=== PATIENT | female | born 1960 | race African-American/Black ===

== ENCOUNTER 2024-05-05 22:49 | Emergency (ER) | payer MEDICARE, MEDICAID ==
[~2024-05-05] VITALS: Ht 175.3 cm; Wt 77.0 kg
--- NOTE | 2024-05-05 23:13 | ED.PDOC ---
History of Present Illness HPI Comments 63 y/o F, with a Hx of asthma, breast CA, COPD, HTN, obesity, and former tobacco use, is BIBA for c/o shortness of breath, wheezing, and chest pain, today. Per EMS report, patient endorses on unprovoked onset of symptoms, this morning, that has been progressively worsening since. She comments on pain being a 10/10 in severity and describes it as "tightening" within her chest wall as quality. On scene, patient was found with a SpO2 of 95% RA, with inspiratory wheezes, bilaterally, and increased [id number]. En route, patient was given albuterol nebulizer breathing treatment, with positive response. At time of assessment, patient reports no recent travel, sick contact, or any additional relevant or pertinent Hx. She denies having any palpitations, cough, fever, chills, nausea, vomiting, or other associated symptoms or modifiers at this time. Time Seen by MD: 22:45 Reviewed Notes: Nurses Notes, Procedure Tech Notes, Medications, Allergies Allergies: Coded Allergies: NO KNOWN ALLERGIES (Unverified , 05/06/24) Information Source: Patient, Emergency Med Personnel Mode of Arrival: EMS Severity: Moderate Timing: Hours Duration: Since onset Prehospital treatment: 12 Lead EKG, Breathing Tx, Furnace Combustion Tester Past Medical History PAST MEDICAL HISTORY: Asthma, Cancer (breast), COPD, HTN Past Medical History (Other): obesity Surgical History: Denies all surgeries RIVET FLUNKY History: Denies all RIVET FLUNKY Hx Family History Family History: Unknown Social History Smoker: Non-Smoker, Quit Greater Than 1 Year Alcohol: Denies ETOH Use Drugs: Denies Drug Use Lives In: Home Respiratory: reports: shortness of breath, wheezing Cardiovascular: reports: chest pain All Other Systems: Reviewed and Negative (negative unless otherwise stated above or in HPI) Physical Exam General Appearance: Mild Distress, Obese HEENT: Normal ENT Inspection, Pharynx Normal, TMs Normal Neck: Full Range of Motion, Non-Tender, Normal, Normal Inspection Respiratory: Chest Non-Tender, No Accessory Muscle Use, Wheezing (audible, bilateral ) Cardiovascular: No Edema, No JVD, No Murmur, No Gallop, Normal Peripheral Pulses, Regular Rate/Rhythm Breast Exam: Deferred Gastrointestinal: No Organomegaly, Non Tender, No Pulsatile Mass, Normal Bowel Sounds, Soft Genitalia: Deferred Pelvic: Deferred Rectal: Deferred Extremities: No calf tenderness, Normal capillary refill, Normal inspection, Normal range of motion, Non-tender, No pedal edema Musculoskeletal : Apperance: Normal Neurologic: Alert, bulb sorter II-XII nml as Tested, No Motor Deficits, Normal Affect, Normal Mood, No Sensory Deficits Cerebellar Function: Normal Reflexes: Normal Skin: Dry, Normal Color, Warm Lymphatic: No Adenopathy Was a procedure done? Was a procedure done?: No EKG EKG : Pulse Rate (adult): 73 [place]: Normal Cardiac Rhythm: NSR, PVC's Block: None Hypertrophy: None ST: Normal Differential Dx Considerations may include: COPD exacerbation, asthma exacerbation, URI, viral syndrome, bronchitis, PNA, PE, DE X-Ray, Labs, Meds, VS Vital Signs Date Time Temp Pulse Resp B/P (MAP) Pulse Ox O2 Delivery O2 Flow Rate FiO2 05/06/24 01:36 74 20 93 Nasal Cannula* 2 28 05/06/24 01:36 20 142/94 (110) 96 05/05/24 23:15 73 05/05/24 23:12 73 05/05/24 22:49 97.7 62 24 137/90 (106) 100 Lab Test 05/06/24 01:20 05/05/24 23:49 Range/Units Troponin I High Sensitivity 6 6 </=34 ng/L White Blood Count 4.7 4.4-10.8 10^3/uL Red Blood Count 3.68 L 4.0-5.20 10^6/uL Hemoglobin 12.8 12.2-16.2 g/dL Hematocrit 38.1 36.0-46.0 % Mean Corpuscular Volume 103.6 H 80.0-100.0 fL Mean Corpuscular Hemoglobin 34.9 H 28.0-32.0 pg Mean Corpuscular Hemoglobin Concent 33.7 32.0-36.0 g/dL Red Cell Distribution Width 14.4 H 11.8-14.3 % Platelet Count 232 140-450 10^3/uL Mean Platelet Volume 7.9 6.9-10.8 fL Neutrophils (%) (Auto) 35.0 L 37.0-80.0 % Lymphocytes (%) (Auto) 53.3 H 10.0-50.0 % Monocytes (%) (Auto) 9.4 0.0-12.0 % Eosinophils (%) (Auto) 1.3 0.0-7.0 % Basophils (%) (Auto) 1.0 0.0-2.0 % Neutrophils # (Auto) 1.6 1.6-8.6 10 ^3/uL Lymphocytes # (Auto) 2.5 0.4-5.4 10 ^3/uL Monocytes # (Auto) 0.4 0-1.3 10 ^3/uL Eosinophils # (Auto) 0.1 0-0.8 10 ^3/uL Basophils # (Auto) 0 0-0.2 10 ^3/uL Nucleated Red Blood Cells 0.2 % Sodium Level 143 136-145 mmol/L Potassium Level 4.3 3.5-5.1 mmol/L Chloride Level 113 H 98-107 mmol/L Carbon Dioxide Level 21 20-31 mmol/L Anion Gap 9 5-15 Blood Urea Nitrogen 17 9-23 mg/dL Creatinine 1.93 H 0.550-1.02 mg/dL Glomerular Filtration Rate Calc 29 >90 mL/min BUN/Creatinine Ratio 8.8 L 10.0-20.0 Serum Glucose 104 74-106 mg/dL Calcium Level 9.9 8.7-10.4 mg/dL B-Type Natriuretic Peptide 34.35 0-100 pg/mL Current Medications Medications (Trade) Dose Ordered Sig/Varun Route Start Time Stop Time Status Last Admin Albuterol (Ventolin Medneb) 10 mg ONCE ONCE NEB 05/05/24 23:30 05/05/24 23:31 DC 05/05/24 23:34 Ipratropium [place] (Atrovent Medneb) 0.5 mg ONCE ONCE NEB 05/05/24 23:30 05/05/24 23:31 DC 05/05/24 23:34 Methylprednisolone Sodium Succinate (Solu Medrol) 125 mg ONCE ONCE IM 05/06/24 01:15 05/06/24 01:16 DC 05/06/24 01:24 Ceftriaxone Sodium (Rocephin) 500 mg ONCE ONCE IM 05/06/24 01:15 05/06/24 01:16 DC 05/06/24 01:24 Acetaminophen/ Hydrocodone Bitart ([place] 10/325MG Tab) 1 tab ONCE ONCE PO 05/06/24 01:45 05/06/24 01:46 DC 05/06/24 01:46 The 1st troponin is six. Second troponin is six. EKG shows no signs of ischemia CBC is normal. Creatinine is 1.93. The patient was given breathing treatment Solu-Medrol and Rocephin with [place] for COPD. The patient was evaluated by respiratory therapy and found not to be in respiratory distress. SpO2 is 96-100 on room air. The patient will follow up with the primary care physician in 1-2 days. Time of 1ST Reevaluation: 23:15 Reevaluation 1ST: Unchanged Patient Education/Counseling: Diagnosis, Treatment Family Education/Counseling: No Family Present Departure 1 Departure Time of Disposition: 03:36 Impression: Primary Impression: COPD exacerbation Additional Impression: Renal insufficiency Disposition: HOME / SELF CARE / HOMELESS Condition: Stable Additional Instructions: Reassessed patient, vital signs stable. Denies any new symptoms. Patient is able to tolerate PO and ambulate/be mobile at their baseline without concern. Risks and benefits of all medications given or prescribed, if any, discussed. All lab work, imaging and diagnostic studies were reviewed by me. The patient was counseled extensively on my clinical impression, diagnosis, expected course of the disease, and plan, including their follow-up care. Will discharge patient. Patient instructed to follow up with Primary Care Physician within 24-48 hours. Strict return precautions given for further exacerbation of symptoms or for new symptoms. The patient was given the opportunity to ask questions and all questions were answered by myself and the nursing/tech staff. Patient is in agreement with the care plan. The patient verbally expressed understanding of the discharge instructions, including the reasons to return to the Emergency Department. Discharged With: Self Critical Care Note Critical Care Time?: Yes (35 min-critical care time only) Stability Stability form required: No Heart Score Heart Score: Heart Score Response (Comments) Value History Moderate Suspicious 1 EKG N/A 0 Age 45-64 1 Risk Factors >3 or Hx ASHD 2 Troponin Normal limit 0 Total 4 I personally scribed for ELTON SMITH MD ([email or web address]) on 05/05/24 at 23:13. Electronically submitted by Rashaun Bishop ([email or web address]). I personally scribed for ELTON SMITH MD ([email or web address]) on 05/05/24 at 23:15. Electronically submitted by Rashaun Bishop ([email or web address]). ELTON SMITH MD May 05, 2024 23:13
[2024-05-05] MEDS: ALBUTEROL SULF 2.5 MG/0.5ML(0.5%) NEB SOLN NEB ONE (23:34)
[2024-05-05] MEDS: IPRATROPIUM BROM 0.5 MG/2.5ML INH SOL NEB ONE (23:34)
[2024-05-06 00:09] LABS: Eosinophils # (auto) 0.1 10 ^3/uL (0-0.8); Hematocrit 38.1 % (36.0-46.0); Neutrophils # (auto) 1.6 10 ^3/uL (1.6-8.6); White Blood Cell 4.7 10^3/uL (4.4-10.8)
[2024-05-06 00:10] LABS: Basophils # (auto) 0 10 ^3/uL (0-0.2); Eosinophils % (auto) 1.3 % (0.0-7.0); Hemoglobin 12.8 g/dL (12.2-16.2); Lymphocytes # (auto) 2.5 10 ^3/uL (0.4-5.4); Lymphocytes % (auto) 53.3 % (10.0-50.0); Mean Corpuscular Hemoglobin 34.9 pg (28.0-32.0); Mean Corpuscular Hgb Conc. 33.7 g/dL (32.0-36.0); Mean Corpuscular Volume 103.6 fL (80.0-100.0); Monocytes # (auto) 0.4 10 ^3/uL (0-1.3); Monocytes % (auto) 9.4 % (0.0-12.0); Nucleated Red Blood Cells % 0.2 %; Platelet Count (auto) 232 10^3/uL (140-450); Red Blood Cells 3.68 10^6/uL (4.0-5.20); Red Cell Distribution Width 14.4 % (11.8-14.3)
[2024-05-06 00:11] LABS: Potassium 4.3 mmol/L (3.5-5.1); Sodium 143 mmol/L (136-145)
[2024-05-06 00:12] LABS: Anion Gap 9 (5-15); Carbon Dioxide 21 mmol/L (20-31)
[2024-05-06 00:13] LABS: Calcium 9.9 mg/dL (8.7-10.4)
[2024-05-06 00:17] LABS: BUN/Creatinine Ratio 8.8 (10.0-20.0); Blood Urea Nitrogen 17 mg/dL (9-23); Glucose 104 mg/dL (74-106)
[2024-05-06 00:19] LABS: Chloride 113 mmol/L (98-107)
[2024-05-06] MEDS: cefTRIAXone SOD 500 MG VL IM ONE (01:24)
[2024-05-06] MEDS: methylPREDNISolone SOD SUCC 125 MG/2 ML VL IM ONE (01:24)
[2024-05-06] MEDS: cefTRIAXone 1GM/50ML D5W 50 ML IV ONE (01:31)
[2024-05-06] MEDS: methylPREDNISolone SOD SUCC 125 MG/2 ML VL IV ONE (01:32)
[2024-05-06 01:36] VITALS: PULSE 74; RESP 20; O2SAT 93
[2024-05-06] MEDS: HYDROcodone-ACET 10/325MG TAB PO ONE (01:46)
--- NOTE | 2024-05-06 02:02 | DVH ---
CHEST RADIOGRAPH Indication: sob Technique: Single frontal view of the chest was obtained Comparison: None FINDINGS: Lines and Tubes: None Lungs: Clear Pleura: No effusion. No pneumothorax. Cardiomediastinal contours: Unremarkable Bones: Unremarkable IMPRESSION: 1. No active cardiopulmonary disease. Patient positioning limits evaluation.
[2024-05-06 04:03] VITALS: BP 129/95; PULSE 67; RESP 18; TEMP 98.3; O2SAT 100
--- NOTE | 2024-05-07 06:35 | ECG ---
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
== END 2024-05-06 04:03 | disposition home or self-care (01) ==
LOC: EDBD 22:49 → ER 22:49
DX: J44.1 Chronic obstructive pulmonary disease with (acute) exacerbation (principal); N28.9 Disorder of kidney and ureter, unspecified; I10 Essential (primary) hypertension; E66.9 Obesity, unspecified; Z68.25 Body mass index [BMI] 25.0-25.9, adult; Z87.891 Personal history of nicotine dependence; Z85.3 Personal history of malignant neoplasm of breast
CPT/HCPCS: 36415; 71045; 80048; 83880; 84484; 85025; 93005; 94640; 96372; 99285; J0696; J2919; 36600; 82805